=== PATIENT | female | born 1945 | race Caucasian/White ===

== ENCOUNTER 2016-10-03 11:02 | Emergency (ER) | payer MEDICARE, BC ==
[~2016-10-03] VITALS: Ht 152.4 cm; Wt 66.7 kg
--- NOTE | 2016-10-03 11:15 | NUR ---
Presents self to ed due to left shoulder pain x 7 days. Able to move extrmity. No signs of dislocation nor fracture noted. vss.
--- NOTE | 2016-10-03 11:36 | NUR ---
Md Story at bedside
--- NOTE | 2016-10-03 11:49 | NUR ---
diploma pharmacy technician at bedside
[2016-10-03 13:22] VITALS: BP 138/72
--- NOTE | 2016-10-03 13:34 | NUR ---
Patient discharged to home in stable condition. Written and verbal after care instructions given. Patient verbalizes understanding of instruction.
== END 2016-10-03 13:48 | disposition home or self-care (01) ==
LOC: ER 11:04
DX: S47.2XXA Crushing injury of left shoulder and upper arm, initial encounter (principal); M06.9 Rheumatoid arthritis, unspecified; F41.9 Anxiety disorder, unspecified; W01.0XXA Fall on same level from slipping, tripping and stumbling without subsequent striking against object, initial encounter; Y93.89 Activity, other specified; Y92.89 Other specified places as the place of occurrence of the external cause; Y99.8 Other external cause status
CPT/HCPCS: 73000-TC; 73030-TC; A4606; Z7610

== ENCOUNTER 2017-06-15 11:06 | Emergency (ER) | payer MEDICARE, BC ==
[~2017-06-15] VITALS: Ht 152.4 cm; Wt 67.6 kg
[2017-06-15 11:15] VITALS: BP 150/78
--- NOTE | 2017-06-15 11:15 | NUR ---
bib son, c/o lower back pain 01/23, exacerbated by moving, denies trauma, nad noted, vss, resp even and unlabored. pt put on monitor, waiting for md garay.
[2017-06-15] MEDS ORDERED: CYCLOBENZAPRINE 10 MG TABLET PO ONE (12:30)
[2017-06-15] MEDS ORDERED: KETOROLAC TROMETHAMINE INJ 60 MG/2 ML VIAL IM ONE (12:30)
[2017-06-15] MEDS ORDERED: KETOROLAC TROMETHAMINE INJ 30 MG/ML VIAL ONE (12:40)
[2017-06-15] MEDS ORDERED: CYCLOBENZAPRINE 10 MG TABLET ONE (12:40)
--- NOTE | 2017-06-15 13:26 | NUR ---
PT BACK FROM XRAY
[2017-06-15] MEDS ORDERED: HYDROMORPHONE 1 MG/1 ML DISP.SYRIN ONE (14:12)
--- NOTE | 2017-06-15 14:16 | NUR ---
DILAUDID 1 MG IM GIVEN PER MD ORDER
[2017-06-15] MEDS ORDERED: ONDANSETRON 4 MG TAB.RAPDIS ONE (14:17)
[2017-06-15] MEDS ORDERED: HYDROMORPHONE 1 MG/1 ML DISP.SYRIN IM ONE (14:30)
[2017-06-15] MEDS ORDERED: ONDANSETRON 4 MG TAB.RAPDIS SL ONE (14:30)
== END 2017-06-15 14:04 | disposition home or self-care (01) ==
LOC: ER 11:07
DX: S76.311A Strain of muscle, fascia and tendon of the posterior muscle group at thigh level, right thigh, initial encounter (principal); F32.9 Major depressive disorder, single episode, unspecified; X58.XXXA Exposure to other specified factors, initial encounter; Y93.I9 Activity, other involving external motion; Y92.89 Other specified places as the place of occurrence of the external cause; Y99.8 Other external cause status
CPT/HCPCS: 72190; 96372 ×2; 99284; A4606; J1170; J1885; Q0162; Z7610

== ENCOUNTER 2020-02-26 03:58 | Inpatient (IN) | payer BC, MEDICARE ==
[~2020-02-26] VITALS: Ht 152.4 cm; Wt 63.5 kg
[2020-02-26] MEDS ORDERED: HYDROMORPHONE 1 MG/1 ML DISP.SYRIN ONE (04:10)
[2020-02-26] MEDS ORDERED: ONDANSETRON HCL/PF 4 MG/2 ML VIAL ONE (04:10)
[2020-02-26] MEDS ORDERED: HYDROMORPHONE INJ 2 MG/ML DISP.SYRIN IV ONE (04:30)
[2020-02-26] MEDS ORDERED: ONDANSETRON HCL/PF 4 MG/2 ML VIAL IVP ONE (04:30)
[2020-02-26] MEDS ORDERED: IV NS 0.9% 500 ML BAG IV ONE (04:30)
--- NOTE | 2020-02-26 04:49 | NUR ---
SON, MCKINLEY, ALSO POWER OF ATTORNEYPHONE # [phone]
[2020-02-26 05:08] LABS: BASOPHILS # (AUTO) 0.1 /CMM (0.0-0.2); BASOPHILS % (AUTO) 1.4 % (0.0-2.0); EOSINOPHILS % (AUTO) 5.2 % (0.0-6.0); HEMATOCRIT 40 % (33-45); HEMOGLOBIN 12.8 g/dL (11.5-14.8); LYMPHOCYTES # (AUTO) 1.2 /CMM (0.8-4.8); LYMPHOCYTES % (AUTO) 15.3 % (20.0-44.0); MEAN CORPUSCULAR HGB CONC 32 g/dl (31.0-36.0); MEAN CORPUSCULAR VOLUME 91 fL (82-100); MONOCYTES # (AUTO) 0.7 /CMM (0.1-1.30); MONOCYTES % (AUTO) 9.2 % (2.0-12.0); NEUTROPHILS # (AUTO) 5.2 /CMM (1.8-8.9); NEUTROPHILS % (AUTO) 68.9 % (43.0-81.0); PLATELET COUNT (AUTO) 241 /CMM (150-450); RED BLOOD CELL COUNT(AUTO) 4.35 MIL/uL (4.0-5.2); WHITE BLOOD COUNT (AUTO) 7.5 K/uL (4.3-11.0)
--- NOTE | 2020-02-26 05:08 | NUR ---
LILIBETH MCFADDEN TALKING TO DR. SHEEHAN REGARDING PT ADMISSION.
[2020-02-26 05:29] LABS: ALBUMIN 2.9 g/dL (3.4-5.0); BILIRUBIN,DIRECT 0.1 mg/dL (0.0-0.2); BILIRUBIN,TOTAL 0.2 mg/dL (0.2-1.0); CALCIUM, SERUM 8.8 mg/dL (8.5-10.1); CREATININE 0.9 mg/dL (0.6-1.3); POTASSIUM 4.4 mmol/L (3.5-5.1); TOTAL PROTEIN, SERUM 7.1 g/dL (6.4-8.2)
[2020-02-26] MEDS ORDERED: MAGNESIUM HYDROXIDE 30 ML UDC PO PRN (05:30)
[2020-02-26] MEDS ORDERED: ACETAMINOPHEN 325 MG TABLET PO PRN (05:30)
[2020-02-26] MEDS ORDERED: MORPHINE SULFATE INJ 2 MG/ML DISP.SYRIN IV PRN (05:30)
[2020-02-26] MEDS ORDERED: Z GUARD REMEDY 2 OZ OINT TP PRN (05:30)
[2020-02-26] MEDS ORDERED: ONDANSETRON HCL/PF 4 MG/2 ML VIAL IVP PRN (05:30)
[2020-02-26] MEDS ORDERED: MAG HYDROX/AL HYDROX/SIMETH 30 ML UDC PO PRN (05:30)
--- NOTE | 2020-02-26 06:16 | NUR ---
LAB CALLED REGARDING NEGATIVE COVID RESULT.
--- NOTE | 2020-02-26 07:15 | NUR ---
Received report from ER by ED RN.
--- NOTE | 2020-02-26 07:19 | NUR ---
REPORT CALLED TO M/S SRIDHAR PENDLETON. WILL TRANSPORT PT TO ROOM 309-2
--- NOTE | 2020-02-26 07:30 | NUR ---
RN Opening note Received patient AO x 1-2, confuse, forgetfulness, able to responds all stimuli. Patient does no appears pain or discomfort, skin is warm to touch, keep clean/dry, intact piccline site running NS at 125ml/hr. Respiratory even and unlabored with oxygen at 2LPM, o2sat 97%. Kept bed in locked with elevated HOB for ensure air and aspiration precaution. Call light within reach, will continue to monitor.
--- NOTE | 2020-02-26 07:40 | NUR ---
Patient admitted from ER, AO x 2-3, confused, pt attempted walk to bathroom without help and assist, educated patient that who has fractured right hip and not to move, call us when you need assist or help. Will continue to monitor for safety, fall precaution.
[2020-02-26 08:00] VITALS: BP 152/69
[2020-02-26] MEDS ORDERED: CELE-85 PO (09:03)
[2020-02-26] MEDS ORDERED: ESCI10TA PO (09:03)
[2020-02-26] MEDS ORDERED: MEMA28CA5 PO (09:03)
[2020-02-26] MEDS ORDERED: BUPR-319 PO (09:03)
[2020-02-26] MEDS ORDERED: LEFL20TA18 PO (09:03)
[2020-02-26] MEDS ORDERED: LEFLUNOMIDE 20 MG TABLET PO SCH (09:30)
[2020-02-26] MEDS: BUPROPION XL 150 MG TAB.ER.24 PO SCH (09:30)
[2020-02-26] MEDS: ESCITALOPRAM OXALATE (10 MG) 10 MG TABLET PO SCH (09:30)
[2020-02-26] MEDS ORDERED: CELECOXIB 100 MG CAPSULE PO PRN (09:30)
[2020-02-26] MEDS ORDERED: Medication Not On Formulary EA (Memantine HCl (Memantine HCl ER) 28 MG) PO SCH (09:30)
[2020-02-26] MEDS: MEMANTINE HCL 5 MG TABLET PO SCH ×2 (10:00→17:54)
[2020-02-26] MEDS: MORPHINE SULFATE INJ 4 MG/ML DISP.SYRIN IV PRN (11:33)
--- NOTE | 2020-02-26 12:38 | NUR ---
Patient VTE score is 4, placed SCD pump order and informed MD.
--- NOTE | 2020-02-26 18:30 | NUR ---
RN Closing note Received patient is in bed resting, noticed confuse and screaming, given Dilaudid for right hip pain at evening, does no appears pain or discomfort at this time. Skin is warm to touch, keep clean/dry, intact IV site. Respiratory even and unlabored on room air, o2sat 100%. Kept bed in locked with elevated HOB for ensure air and aspiration precaution. Call light within reach, will continue to monitor.
--- NOTE | 2020-02-26 20:26 | NUR ---
MS/TELE/RN DURING INITIAL SHIFT ASSESSMENT AT 1999, PATIENT WAS AWAKE, ALERT, ORIENTED X 4, COMFORTABLE, NO C/O PAIN, NO DISTRESS NOTED, CALL LIGHT IN REACH, FALL PRECAUTIONS PER PROTOCOL. WILL MONITOR.
[2020-02-26 22:08] VITALS: BP 116/60
--- NOTE | 2020-02-27 00:25 | NUR ---
MS/TELE/RN PATIENT IS SLEEPING AT THIS TIME, APPEAR COMFORTABLE, BREATHING EVEN AND UNLABORED, CALL LIGHT IN REACH. WILL CONTINUE TO MONITOR.
[2020-02-27] MEDS: HYDROCODONE/APAP 5/325MG TABLET PO PRN ×2 (02:22→06:06)
--- NOTE | 2020-02-27 06:26 | NUR ---
MS/TELE/RN PATIENT IS AWAKE, COMFORTABLE, NO DISTRESS NOTED, CALL LIGHT IN REACH, MEDICATED WITH PAIN MEDICATION PRN, SLEPT GOOD THE WHOLE SHIFT, ALL NEEDS ATTENDED AT THIS TIME, WILL CONTINUE TO MONITOR.
[2020-02-27 07:25] LABS: ALBUMIN 2.7 g/dL (3.4-5.0); BILIRUBIN,TOTAL 0.7 mg/dL (0.2-1.0); CALCIUM, SERUM 8.7 mg/dL (8.5-10.1); CREATININE 0.7 mg/dL (0.6-1.3); MAGNESIUM 2.1 mg/dL (1.8-2.4); PHOSPHORUS 4.4 mg/dL (2.5-4.9); TOTAL PROTEIN, SERUM 6.5 g/dL (6.4-8.2)
--- NOTE | 2020-02-27 07:30 | NUR ---
RN Opening note Received patient in bed, calm this morning, AO x 2-3, confuse, forgetfulness, able to responds all stimuli. Pt does no appears pain or distress. Skin is warm to touch, kept clean/dry, intact IV site. Respiratory even and unlabored on room air, no resp distress observed. Keep bed in locked with elevated HOB for ensure air way and aspiration precaution. Call light within reach, will continue to monitor.
--- NOTE | 2020-02-27 07:34 | NUR ---
LATE ENTRY FOR 02/26/20: Patient VTE score is 4, informed Dr. Alexander who will check, no new order at this time.
[2020-02-27 07:50] LABS: BASOPHILS % (AUTO) 0.4 % (0.0-2.0); EOSINOPHILS % (AUTO) 2.5 % (0.0-6.0); HEMATOCRIT 39 % (33-45); HEMOGLOBIN 12.5 g/dL (11.5-14.8); LYMPHOCYTES # (AUTO) 0.7 /CMM (0.8-4.8); LYMPHOCYTES % (AUTO) 9.2 % (20.0-44.0); MEAN CORPUSCULAR HGB CONC 32 g/dl (31.0-36.0); MEAN CORPUSCULAR VOLUME 91 fL (82-100); MONOCYTES % (AUTO) 12.7 % (2.0-12.0); NEUTROPHILS # (AUTO) 5.9 /CMM (1.8-8.9); NEUTROPHILS % (AUTO) 75.2 % (43.0-81.0); PLATELET COUNT (AUTO) 208 /CMM (150-450); RED BLOOD CELL COUNT(AUTO) 4.24 MIL/uL (4.0-5.2); WHITE BLOOD COUNT (AUTO) 7.9 K/uL (4.3-11.0)
[2020-02-27 08:00] VITALS: BP 107/67
[2020-02-27] MEDS ORDERED: MEMANTINE HCL 5 MG TABLET PO SCH (09:00)
--- NOTE | 2020-02-27 10:35 | NUR ---
Son accepted ok to give [id number] BID. Will replace order.
[2020-02-27] MEDS: MEMANTINE HCL 5 MG TABLET PO SCH ×2 (10:44→16:44)
[2020-02-27] MEDS: BUPROPION XL 150 MG TAB.ER.24 PO SCH (10:45)
[2020-02-27] MEDS: ESCITALOPRAM OXALATE (10 MG) 10 MG TABLET PO SCH (10:45)
[2020-02-27] MEDS: LEFLUNOMIDE 10 MG TABLET PO SCH (10:45)
[2020-02-27] MEDS: MORPHINE SULFATE INJ 4 MG/ML DISP.SYRIN IV PRN (10:46)
[2020-02-27 16:00] VITALS: BP 111/61
--- NOTE | 2020-02-27 18:51 | NUR ---
RN Closing note Patient is in bed comfortably AO x 4, pt going procedure tomorrow morning for right hip orthoplasty and obtained consent sign, does no c/o pain or discomfort, skin is warm to touch, keep clean/dry, intact new IV site on left hand. Respiratory even and unlabored. Kept bed in locked with elevated HOB for ensure air and aspiration precaution. Call light within reach, will continue to monitor.
--- NOTE | 2020-02-27 19:15 | NUR ---
MS RN OPENING NOTES: RECEIVED PATIENT IN BED, AWAKE, A/O X4. PATIENT IS HAPPY. NO S/S DISTRESS NOTED. CALL LIGHT WITHIN REACH. NO COMPLAIN OF PAIN. BED ALRM ON. BED IN LOWEST AND LOCKED POSITION. NPO POST MN, PATIENT IS AWARE. EUGENIO LEONARD AWARE. WITH LOREDO CATHETER INTACT, WITH YELLOW COLORED URINE. WITH O2 AT 2L/MIN NASAL CANNULA. WITH SCD'S ON BOTH LEGS ON AT ALL TIMES.
[2020-02-27 20:00] VITALS: BP_SYST 105; BP_DIAS 60; BP_DIAS 69
[2020-02-28] VITALS (9 sets, daily range): BP systolic 108–149; BP diastolic 56–87
[2020-02-28] MEDS: MORPHINE SULFATE INJ 4 MG/ML DISP.SYRIN IV PRN ×2 (05:40→18:43)
[2020-02-28 07:14] LABS: BASOPHILS % (AUTO) 0.4 % (0.0-2.0); EOSINOPHILS % (AUTO) 2.8 % (0.0-6.0); HEMATOCRIT 36 % (33-45); HEMOGLOBIN 11.5 g/dL (11.5-14.8); LYMPHOCYTES # (AUTO) 0.8 /CMM (0.8-4.8); LYMPHOCYTES % (AUTO) 9.1 % (20.0-44.0); MEAN CORPUSCULAR HGB CONC 32 g/dl (31.0-36.0); MEAN CORPUSCULAR VOLUME 91 fL (82-100); MONOCYTES % (AUTO) 11.7 % (2.0-12.0); NEUTROPHILS # (AUTO) 6.7 /CMM (1.8-8.9); PLATELET COUNT (AUTO) 211 /CMM (150-450); RED BLOOD CELL COUNT(AUTO) 3.95 MIL/uL (4.0-5.2); WHITE BLOOD COUNT (AUTO) 8.8 K/uL (4.3-11.0)
--- NOTE | 2020-02-28 07:27 | NUR ---
MS RN CLOSING NOTES: PATIENT IN BED, AWAKE. NO S/S OF DISTRESS NOTED. CALL LIGHT WITHIN REACH. BED ALARM ON. BED IN LOWEST AND LOCKED POSITION. WITH LOREDO CATHETER INTACT, WITH CLEAR YELLOW URINE OUTPUT. FOR SURGERY TO DAY WITH CONSENT SIGNED AND ATTACHED TO THE CHART. PRE-OP CHECKLIST STARTED AND ATTACHED TO THE CHART. URINE SAMPLE COLLECTED FROM LOREDO CATH. AND SENT TO LAB FOR UA TEST.
[2020-02-28 07:32] LABS: APPEARANCE,URINE SL CLOUDY (CLEAR); BILIRUBIN,URINE NEGATIVE (NEGATIVE); BLOOD, URINE MODERATE Ery/uL (NEGATIVE); COLOR,URINE YELLOW (YELLOW); KETONES,URINE TRACE (NEGATIVE); LEUKOCYTE ESTERASE ,URINE TRACE (NEGATIVE); NITRITE, URINE NEGATIVE (NEGATIVE); PROTEIN,URINE 30 mg/dl (NEGATIVE); UGLUCOSE NEGATIVE (NEGATIVE); UROBILINOGEN,URINE 0.2 EU/dL (0.2)
[2020-02-28 08:33] LABS: CALCIUM, SERUM 8.8 mg/dL (8.5-10.1); CREATININE 0.7 mg/dL (0.6-1.3); MAGNESIUM 2.2 mg/dL (1.8-2.4); PHOSPHORUS 3.3 mg/dL (2.5-4.9)
[2020-02-28 08:40] LABS: BACTERIA,URINE Few /HPF (None Seen); SQUAMOUS EPITHELIAL CELL,UR Few /HPF (None Seen); YEAST,URINE Few /HPF (None Seen)
[2020-02-28] MEDS: LEFLUNOMIDE 10 MG TABLET PO SCH (09:00)
[2020-02-28] MEDS: ESCITALOPRAM OXALATE (10 MG) 10 MG TABLET PO SCH (09:00)
[2020-02-28] MEDS: BUPROPION XL 150 MG TAB.ER.24 PO SCH (09:00)
[2020-02-28] MEDS: MEMANTINE HCL 5 MG TABLET PO SCH ×2 (09:00→16:52)
--- NOTE | 2020-02-28 09:30 | NUR ---
MS RN NOTES SPOKE TO PATIENTS SON, BEFORE CONSENTING TO SURGERY HE WANTS TO SPEAK TO SURGEON AGAIN, OR MADE AWARE DR. AZAR WILL CALL PATINES SON.
--- NOTE | 2020-02-28 10:00 | NUR ---
MS RN NOTES PATIENT TRANSFERRED TO OR FOR SCHEDULED SURGERY.
[2020-02-28] MEDS ORDERED: BUPIVACAINE 0.5 % PF 150 MG/30 ML VIAL ONE (10:05)
[2020-02-28] MEDS ORDERED: BACITRACIN 50000 UNITS/VIAL ONE (10:05)
[2020-02-28] MEDS ORDERED: VANCOMYCIN 1 GM VIAL ONE (10:05)
[2020-02-28] MEDS ORDERED: FENTANYL PF 100MCG/2ML AMPUL ONE (10:27)
[2020-02-28] MEDS ORDERED: SUCCINYLCHOLINE CHLORIDE 20 MG/ML VIAL ONE (10:28)
[2020-02-28] MEDS ORDERED: ROCURONIUM BROMIDE 50 MG/5 ML ONE (10:28)
[2020-02-28] MEDS: TRANEXAMIC ACID 1,000 MG in IV NS 0.9% 100 ML IV SCH ×2 (10:30→13:30)
[2020-02-28] MEDS ORDERED: SEVOFLURANE 250 ML BOTTLE IH ONE (13:23)
--- NOTE | 2020-02-28 14:00 | NUR ---
MS RN NOTES PATIENT RETURNED FROM OR IN STABLE CONDITION. PATIENT SLEEPING WILL CONTINUE TO MONITOR.
[2020-02-28 14:02] LABS: BASOPHILS % (AUTO) 0.2 % (0.0-2.0); EOSINOPHILS % (AUTO) 1.7 % (0.0-6.0); HEMATOCRIT 39 % (33-45); HEMOGLOBIN 12.2 g/dL (11.5-14.8); LYMPHOCYTES # (AUTO) 0.7 /CMM (0.8-4.8); LYMPHOCYTES % (AUTO) 6.6 % (20.0-44.0); MEAN CORPUSCULAR HGB CONC 32 g/dl (31.0-36.0); MEAN CORPUSCULAR VOLUME 92 fL (82-100); MONOCYTES % (AUTO) 9.5 % (2.0-12.0); PLATELET COUNT (AUTO) 201 /CMM (150-450); RED BLOOD CELL COUNT(AUTO) 4.21 MIL/uL (4.0-5.2)
[2020-02-28] MEDS: IV LR 1000 ML 1,000 ML IV PRN (14:17)
--- NOTE | 2020-02-28 18:58 | NUR ---
MS RN NOTES PATIENT IN BED RESTING NO SOB OR ACUTE DISTRESS NOTED. PATIENT S/P RIGHT TOTAL KNEE REPLACEMENT. ALL DUE MEDICATIONS ADMINISTERED. ALL NEEDS MET. NO ACUTE CHANGES NOTED. WILL ENDORSE CARE TO PM SHIFT.
--- NOTE | 2020-02-28 19:00 | NUR ---
RN medsur opening notes Pt is resting in bed comfortably. Pt is alert and orientedX4, easily forgetful and able to make needs known. Respiration is normal in 2 L NC. No SOB. No S/S of distress noted. IV sites at R hand# 24 is clean, intact and SL. R forearm # 22 is clean, intact and SL. L wrist # 22 is clean, intact and infusing well LR@ 100 ml/hr. R hips surgical incision dressing is clean, intact and dry. Safety precautions is maintained. Bed at low position, brakes locked, side rails upX3 and call light is within reach. Will continue to monitor.
[2020-02-28] MEDS: CEFAZOLIN 2 GM in IV D5W 100 ML IV SCH (19:57)
--- NOTE | 2020-02-29 02:00 | NUR ---
RN medsur notes Spoke with Pt's son Gume regarding Pt's condition. Pt's son verbalize understanding. Will continue to monitor.
[2020-02-29] MEDS: HYDROCODONE/APAP 5/325MG TABLET PO PRN ×3 (02:15→22:13)
--- NOTE | 2020-02-29 02:15 | NUR ---
MS RN NOTE: Patient complains of right hip pain. Patient describes pain as aching and rates pain 8 on a 0-10 numerical scale. Administered PRN [place] per MD order. Will monitor.
[2020-02-29] MEDS: CEFAZOLIN 2 GM in IV D5W 100 ML IV SCH (02:53)
--- NOTE | 2020-02-29 03:00 | NUR ---
RN medsur notes Pt refused to be changed and cleaned. Offered multiple times. Made aware risks and benefits. Pt keep refusing. Will continue to monitor.
--- NOTE | 2020-02-29 06:50 | NUR ---
RN medsurg closing notes Pt is resting in bed comfortably. Pt is alert and orientedX4, confused and forget easily. Respiration is normal in 2 L NC. No SOB. No S/S of distress noted. IV sites at R hand# 24 is clean, intact and SL. R forearm # 22 is clean, intact and SL. L wrist # 22 is clean, intact and infusing well LR@ 100 ml/hr. R hips surgical incision dressing is clean, intact and dry. VS is stable. Afebrile. Routine meds were given as ordered. Safety precautions is maintained. Bed at low position, brakes locked, side rails upX3 and call light is within reach. Will endorse to am nurse for VIKTORIYA.
--- NOTE | 2020-02-29 07:30 | NUR ---
received pt. in am alert and oriented x2-3.vs stable. iv infusing.
--- NOTE | 2020-02-29 07:33 | NUR ---
MS/RN OPENING NOTES RECEIVED PATIENT ON BED AWAKE, CONFUSED AND FORGETFUL. PATIENT IN NO APPARENT RESPIRATORY DISTRESS NOTED. DENIES PAIN AT THIS TIME. WILL CONTINUE TO MONITOR.
[2020-02-29 08:00] VITALS: BP 133/65
--- NOTE | 2020-02-29 10:30 | NUR ---
with permission of cloth laminating supervisor son here observing ptx.
[2020-02-29] MEDS: LEFLUNOMIDE 10 MG TABLET PO SCH (10:55)
[2020-02-29] MEDS: MEMANTINE HCL 5 MG TABLET PO SCH ×2 (10:56→17:13)
[2020-02-29] MEDS: BUPROPION XL 150 MG TAB.ER.24 PO SCH (10:56)
[2020-02-29] MEDS: ESCITALOPRAM OXALATE (10 MG) 10 MG TABLET PO SCH (10:56)
[2020-02-29] MEDS: ENOXAPARIN SODIUM 40 MG/0.4 ML DISP.SYRIN SQ SCH (10:58)
[2020-02-29 16:00] VITALS: BP 108/70
--- NOTE | 2020-02-29 18:00 | NUR ---
medicated x1 for pain with norco.
--- NOTE | 2020-02-29 18:30 | NUR ---
removed one hep lock and abduction pillow, pillow replaced.very confused and seems unawre she had surgery.
[2020-02-29 20:07] VITALS: BP 122/43
--- NOTE | 2020-02-29 20:20 | NUR ---
MS RN NOTE: PATIENT RESTING IN BED, NO ACUTE DISTRESS NOTED. BREATHING EVEN AND UNLABORED, NO SOB NOTED. LOREDO CATHETER IN PLACE, EMPTY AT THIS TIME. ABDUCTOR PILLOW IN PLACE. BED LOCKED AND IN LOWEST POSITION, CALL IN LIGHT IN REACH. WILL CONTINUE TO MONITOR.
--- NOTE | 2020-02-29 20:45 | NUR ---
SPOKE WITH SON MCKINLEY GAVE UPDATES ; CONCERNED ABOUT MOTHERS PAIN. REVIEWED PAIN MEDICATION PLAN. PHONE : [phone]
[2020-03-01] MEDS: IV LR 1000 ML 1,000 ML IV PRN (00:17)
[2020-03-01] MEDS: HYDROCODONE/APAP 5/325MG TABLET PO PRN ×2 (06:33→17:25)
[2020-03-01 06:49] LABS: BASOPHILS % (AUTO) 0.4 % (0.0-2.0); EOSINOPHILS % (AUTO) 4.3 % (0.0-6.0); HEMATOCRIT 33 % (33-45); HEMOGLOBIN 10.4 g/dL (11.5-14.8); LYMPHOCYTES # (AUTO) 0.9 /CMM (0.8-4.8); LYMPHOCYTES % (AUTO) 12.4 % (20.0-44.0); MEAN CORPUSCULAR HGB CONC 32 g/dl (31.0-36.0); MEAN CORPUSCULAR VOLUME 92 fL (82-100); MONOCYTES % (AUTO) 13.6 % (2.0-12.0); NEUTROPHILS # (AUTO) 5.1 /CMM (1.8-8.9); NEUTROPHILS % (AUTO) 69.3 % (43.0-81.0); PLATELET COUNT (AUTO) 235 /CMM (150-450); RED BLOOD CELL COUNT(AUTO) 3.54 MIL/uL (4.0-5.2); WHITE BLOOD COUNT (AUTO) 7.4 K/uL (4.3-11.0)
--- NOTE | 2020-03-01 06:55 | NUR ---
MS RN NOTE: closing PATIENT RESTING IN BED, NO ACUTE DISTRESS NOTED. BREATHING EVEN AND UNLABORED, NO SOB NOTED. LOREDO CATHETER REMOVED PER POST OP ORDERS. ABDUCTOR PILLOW IN PLACE. BSC PLACED AT THE BEDSIDE. BED LOCKED AND IN LOWEST POSITION, CALL IN LIGHT IN REACH. WILL CONTINUE TO MONITOR.
[2020-03-01 07:02] LABS: CALCIUM, SERUM 8.9 mg/dL (8.5-10.1); CREATININE 0.8 mg/dL (0.6-1.3); MAGNESIUM 2.3 mg/dL (1.8-2.4); PHOSPHORUS 3.8 mg/dL (2.5-4.9); POTASSIUM 3.8 mmol/L (3.5-5.1)
--- NOTE | 2020-03-01 07:43 | NUR ---
MS/RN OPENING NOTES RECEIVED PATIENT SETTING ON BED, NO ACUTE DISTRESS NOTED. BREATHING EVEN AND UNLABORED, NO SOB NOTED. BED LOCKED AND IN LOWEST POSITION, CALL IN LIGHT IN REACH. WILL CONTINUE TO MONITOR.
[2020-03-01 08:00] VITALS: BP 124/66
[2020-03-01] MEDS: BUPROPION XL 150 MG TAB.ER.24 PO SCH (08:23)
[2020-03-01] MEDS: MEMANTINE HCL 5 MG TABLET PO SCH ×2 (08:23→17:13)
[2020-03-01] MEDS: ESCITALOPRAM OXALATE (10 MG) 10 MG TABLET PO SCH (08:23)
[2020-03-01] MEDS: ENOXAPARIN SODIUM 40 MG/0.4 ML DISP.SYRIN SQ SCH (08:25)
[2020-03-01] MEDS: LEFLUNOMIDE 10 MG TABLET PO SCH (08:29)
[2020-03-01 15:15] LABS: *SPE A/G RATIO 0.7 (0.7-1.7); *SPE ALBUMIN 2.1 g/dL (2.9-4.4); *SPE ALPHA-1-GLOBULIN 0.5 g/dL (0.0-0.4); *SPE BETA GLOBULIN 1.1 g/dL (0.7-1.3); *SPE GLOBULIN, TOTAL 3.2 g/dL (2.2-3.9); *SPE M-SPIKE Not Observed g/dL (Not Observed); *SPEGAMMA GLOBULIN 0.6 g/dL (0.4-1.8)
[2020-03-01 16:00] VITALS: BP 114/62
--- NOTE | 2020-03-01 18:50 | NUR ---
MS/RN CLOSING NOTES PATIENT IS ON BED. NO SIGN AND SYMPTOM OF PAIN AT THIS TIME. PATIENT IN NO APPARENT RESPIRATORY DISTRESS NOTED. IV ACCESS AT RIGHT FOREARM # 22G WITH IV FLUID OF LR 1L AT 75ML/HR ON AND INFUSING WELL. SEEN AND EXAMINED BY MD WITH ORDERS MADE AND CARRIED OUT. ALL DUE MEDICATION WAS GIVEN. SAFETY PRECAUTION IN PLACED. BED IN LOWEST POSITION AND LOCKED. SIDERAILS UP X2. CALL LIGHT WITH IN REACH. WILL ENDORSED TO SHIPPING WEIGHER FOR VIKTORIYA.
[2020-03-01 20:00] VITALS: BP 120/68
--- NOTE | 2020-03-01 20:00 | NUR ---
MS/RN OPENING NOTES RECEIVED PATIENT IN BED, AWAKE, ALERT X3, ABLE TO VERBALIZE NEEDS, CALL LIGHTS WITHIN REACH, FAMILY IS INVOLVE AND HAVE CALLED TO CHECK UP ON PATIENT, BED LOCKED, CALL LIGHT WITHIN REACH, PROVIDED FLUIDS. TO MONITOR. RESPIRATIONS EVEN AND UNLABORED, SKIN WARM TO TOUCH. RECEIVED ENDORSEMENT FROM AM RN FOR VIKTORIYA.
--- NOTE | 2020-03-01 20:30 | NUR ---
MS/RN NOTES NO GUARDING AND MOANING OBSERVED, DENIES PAIN. ABLE TO PARTICIPATE WITH CARE.
--- NOTE | 2020-03-02 01:00 | NUR ---
MS/RN PATIENT AWAKE, WITH SOME CONFUSION, REDIRECTED AND REORIENTED TO TIME AND PLACE, PATIENT ABLE TO COOPERATE AND PROVIDED SOME SNACKS AND FLUIDS TO DRINK, MONITORED. LISTENED TO PATIENTS CONCERNS AND WAS MADE AWARE OF TIME AND THAT SON CALLED HER UP AND THAT SHE SPOKE WITH HIM EARLIER AND PATIENT HAVE FORGOTTEN IT.
[2020-03-02] MEDS: HYDROCODONE/APAP 5/325MG TABLET PO PRN ×2 (02:29→11:15)
--- NOTE | 2020-03-02 02:31 | NUR ---
MS/RN NOTES PATIENT WITH PAIN IN RIGHT HIP AND LOWER BACK, NEEDED MEDICATION NORCO 5-325 MG PO 2 TABS PER ORDER , ALERT, ORIENTED, MONITORED FOR ANY CHANGES,
--- NOTE | 2020-03-02 02:59 | NUR ---
MS/RN NOTES PATIENT PROVIDED SOME SNACKS, REQUESTED BY PATIENT, ABLE TO EAT HALF OF SANDWICH.
--- NOTE | 2020-03-02 06:35 | NUR ---
309-1MS/RN NOTES PATIENT ABLE TO SLEEP FEW HOURS, REDIRECTED AT ALL TIMES, ON ROOM AIR BREATHING EVEN AND UNLABORED, SKIN WARM TO TOUCH, SAFETY MEASURES PROVIDED, BED LOCKED, CALL LIGHTS WITHIN REACH, WILL ENDORSE TO AM RN FOR segundo.
--- NOTE | 2020-03-02 07:45 | NUR ---
MS/RN - Assessment Patient is awake, A/O x 2-3, forgetful at times, no complaints overnight, stable on room air, afebrile, reports mild pain to right hip op site VT= 1/10, refused pain medication for now. POD#3 right DEVEN, dressing is clean, dry, and intact. Skin on BLE is warm to touch, mild calf tenderness, negative for edema, sensation on both lower ext are intact, WBAT on RLE. Fall and aspiration precautions maintained. All needs attended and met. Patient is stable per ortho, discharge planning to ARU vs SNF. Will continue with current plan of care.
[2020-03-02 08:00] VITALS: BP 123/50
[2020-03-02] MEDS: ENOXAPARIN SODIUM 40 MG/0.4 ML DISP.SYRIN SQ SCH (08:24)
[2020-03-02] MEDS: MEMANTINE HCL 5 MG TABLET PO SCH ×2 (08:25→16:16)
[2020-03-02] MEDS: BUPROPION XL 150 MG TAB.ER.24 PO SCH (08:25)
[2020-03-02] MEDS: ESCITALOPRAM OXALATE (10 MG) 10 MG TABLET PO SCH (08:26)
[2020-03-02] MEDS: LEFLUNOMIDE 10 MG TABLET PO SCH (08:26)
[2020-03-02] MEDS: IV LR 1000 ML 1,000 ML IV PRN (10:46)
[2020-03-02] MEDS ORDERED: ENOX40DI SQ (13:42)
[2020-03-02 16:00] VITALS: BP 139/76
--- NOTE | 2020-03-02 18:10 | NUR ---
MS/RN - Discharge Patient is A/0 X 2-3, forgetful, feeling better, discharged to [facility] ARU in stable condition. Reviewed discharge instructions with SRIDHAR Anderson ([phone]) and she verbalized full understanding and all questions answered to her satisfaction. All belongings sent with yajaira Abarca. VSS, denies pain, afebrile, no apparent distress seen, stable on room air. No fall/injury during hospital stay. Patient refused discharge photo, skin is intact except for right hip surgical incision. Saline lock removed on the RFA with catheter tip intact, no redness, no swelling at the site. Discharge papers sent with ambulance crew. Yajaira Abarca aware of discharge and in agreement. Endorsed accordingly.
== END 2020-03-02 17:55 | DRG 470 ==
LOC: ER 03:58 → TELE 07:08 → MED 21:35
PROVIDERS: ADMIT Nurse Practitioner Acute Care; ATTEND Hospitalist
PROC: 0SR90JZ Replacement of Right Hip Joint with Synthetic Substitute, Open Approach (ICD-10-PCS; principal; 2020-02-28)
DX: M80.051A Age-related osteoporosis with current pathological fracture, right femur, initial encounter for fracture (principal); E44.0 Moderate protein-calorie malnutrition; W18.30XA Fall on same level, unspecified, initial encounter; Y92.89 Other specified places as the place of occurrence of the external cause; E88.09 Other disorders of plasma-protein metabolism, not elsewhere classified; E86.0 Dehydration; M06.9 Rheumatoid arthritis, unspecified; F32.9 Major depressive disorder, single episode, unspecified; F03.90 Unspecified dementia, unspecified severity, without behavioral disturbance, psychotic disturbance, mood disturbance, and anxiety
CPT/HCPCS: 36415; 71045-TC; 72170-TC; 73502; 80048-TC; 80053-TC; 80076-TC; 81000-TC; 83735-TC; 84100-TC; 84155; 84165; 84484-TC; 85025-TC; 85730-TC; 86850-TC; 87081-TC; 88305-TC; 88311-TC; 93307-TC; 93970-TC; 97110-TC; 97116-TC; 97530-TC; A4217; A6209; C1776; C9803-CS; G0378; J0330; J0690; J1170; J1650; J2270; J2405; J3010; J3370; J3490; J7030; J7040; J7060; J7120